=== PATIENT | female | born 1985 | race American Indian/Alaskan Native ===

== ENCOUNTER 2019-07-26 11:31 | Emergency (ER) | payer OTHER ==
--- NOTE | 2019-07-26 11:50 | EDM.PDOC ---
ED HPI GENERAL MEDICAL PROBLEM - General Chief Complaint: General Stated Complaint: CONGESTION/SORE THROAT Time Seen by Provider: 07/26/19 11:42 Source of Information: Reports: Patient, RN Notes Reviewed History Limitations: Reports: No Limitations - History of Present Illness INITIAL COMMENTS - FREE TEXT/NARRATIVE: Patient is a 34-year-old female who presents to the ED for the evaluation of ongoing influenza B symptoms. The patient notes she was diagnosed with influenza B through the [facility], a few days ago, she states that she was given generic Tamiflu for symptoms, she states she has been taking it as prescribed however it has not been helping much. She further notes that she is 27 weeks . She notes that her is going well, there seems to be no lingering issues with that. She is complaining of fever, chills, nausea, sore throat, generalized fatigue and weakness, with lightheadedness. She states that she has been taking Tylenol for other symptomatic relief, her last dose was around 11 AM as well. She states that her appetite has been down as well, she is not able to tolerate much for food or fluids by mouth. Generalized Pain Score (Numeric/FACES): 7 - Related Data Allergies Allergy/AdvReac Type Severity Reaction Status Date / Time No Known Allergies Allergy Verified 07/26/19 11:42 Home Meds: Home Meds [id number]/Iron Fumarate/FA/DSS [ 19 Tablet] 1 tab PO DAILY 07/26/19 [ History] Past Medical History DECK MATE History: Reports: LMP (Approximate): (27weeks) - Infectious Disease History Infectious Disease History: Reports: Influenza (Influenza B (Jul 2019)) Social & Family History - Caffeine Use Caffeine Use: Reports: None ED ROS GENERAL - Review of Systems Review Of Systems: See Below Constitutional: Reports: Fever, Chills, Malaise (generalized), Decreased Appetite Respiratory: Reports: Cough. Denies: Shortness of Breath Cardiovascular: Denies: Chest Pain GI/Abdominal: Reports: Nausea, Other (heartburn). Denies: Abdominal Pain, Vomiting ED EXAM, GENERAL - Physical Exam Exam: See Below Exam Limited By: No Limitations General Appearance: Alert, WD/WN, No Apparent Distress Eye Exam: Bilateral Eye: EOMI, Normal Inspection, PERRL Ears: Normal External Exam, Normal Canal, Hearing Grossly Normal, Normal TMs Nose: Normal Inspection Throat/Mouth: Normal Inspection, Normal Lips, Normal Teeth, Normal Gums, Normal Oropharynx, Normal Voice, No Airway Compromise Head: Atraumatic, Normocephalic Neck: Normal Inspection Respiratory/Chest: No Respiratory Distress, Lungs Clear, Normal Breath Sounds, No Accessory Muscle Use, Chest Non-Tender Cardiovascular: Normal Peripheral Pulses, Regular Rate, Rhythm, No Murmur Peripheral Pulses: 3+: Radial (L), Radial (R) GI/Abdominal: Normal Bowel Sounds, Soft, Non-Tender, No Distention, No Mass Neurological: Alert, Oriented, Normal Cognition, No Motor/Sensory Deficits Psychiatric: Normal Affect, Normal Mood Skin Exam: Warm, Dry, Intact, Normal Color, No Rash Course - Vital Signs Last Recorded V/S: Last Vital Signs Temp 98.1 F 07/26/19 11:39 Pulse 92 07/26/19 11:39 Resp 20 07/26/19 11:39 BP 126/77 07/26/19 11:39 Pulse Ox 99 07/26/19 11:39 - Orders/Labs/Meds Orders: Active Orders 24 hr Category Date Time Status Peripheral IV Care [RC] . DIRECTED Care 07/26/19 12:07 Ordered Lactated Ringers [Ringers, Lactated] 1,000 ml Med 07/26/19 12:07 Ordered IV .BOLUS Sodium Chloride 0.9% [Saline Flush] Med 07/26/19 12:07 Ordered 10 ml FLUSH ASDIRECTED PRN Peripheral IV Insertion Adult [OM.PC] Routine Oth 07/26/19 12:07 Ordered Medication Orders Lactated Ringer's (Ringers, Lactated) 1,000 mls @ 999 mls/hr IV .BOLUS ONE Stop: 07/26/19 13:07 Last Admin: 07/26/19 12:32 Dose: 999 mls/hr Sodium Chloride (Saline Flush) 10 ml FLUSH ASDIRECTED PRN PRN Reason: Keep Vein Open Last Admin: 07/26/19 12:32 Dose: 10 ml Meds: Medications Generic Name Dose Route Start Last Admin Trade Name Freq PRN Reason Stop Dose Admin Lactated Ringer's 1,000 mls @ 999 mls/hr 07/26/19 12:07 07/26/19 12:32 Ringers, Lactated IV 07/26/19 13:07 999 mls/hr .BOLUS ONE Administration Sodium Chloride 10 ml 07/26/19 12:07 07/26/19 12:32 Saline Flush FLUSH 10 ml ASDIRECTED PRN Administration Keep Vein Open Discontinued Medications Generic Name Dose Route Start Last Admin Trade Name Cassia PRN Reason Stop Dose Admin Al Hydroxide/Mg Hydroxide 30 0 ml 07/26/19 12:07 07/26/19 12:24 ml/ Lidocaine HCl 15 ml PO 07/26/19 12:08 45 ml ONETIME ONE Administration Ondansetron HCl 4 mg 07/26/19 12:07 07/26/19 12:26 Zofran Odt PO 07/26/19 12:08 4 mg ONETIME ONE Administration - Re-Assessments/Exams Free Text/Narrative Re-Assessment/Exam: 07/26/19 12:22 Patient presents to the ED for evaluation of ongoing influenza B symptoms. As she is 27 weeks , she will get some IV fluids as she states she has not been able to eat or drink much. She will also get some Zofran, a GI cocktail for reported heartburn. Plan is to possibly send home with some Zofran for nausea management. Departure - Departure Time of Disposition: 12:58 Disposition: Home, Self-Care 01 Condition: Fair Clinical Impression: Influenza B, Dehydration during - Discharge Information *PRESCRIPTION DRUG MONITORING PROGRAM REVIEWED*: No *COPY OF PRESCRIPTION DRUG MONITORING REPORT IN PATIENT ELIO: No Instructions: Influenza, Adult, [id number], and Influenza Referrals: Daksha Magaña MD [Primary Care Provider] - Forms: ED Department Discharge Additional Instructions: You have been evaluated in the ED for cold like symptoms and fever. You were diagnosed with influenza B from the previous clinic visit. The symptoms you are experiencing today, or ongoing influenza symptoms. In your body is immunosuppressed, due to the baby growing in situ. So sometimes symptoms hit a little harder, and last a little bit longer. You were given some IV fluids, and some medications to help with this symptom relief. Please try to limit your exposure to others until you are 24 hours fever free without medication. You may use 500 to 1000 mg Tylenol every 6 hours as needed for further fever/ pain relief. Do not exceed 4000 mg of Tylenol in a 24-hour time span. Her given a prescription for Tamiflu, please complete the course, do not stop taking it. Recommend you follow a clear liquid diet, until your symptoms seem to resolve. Fluids such as Gatorade, Powerade, chicken broth, beef breaths are ideal, please do this for the next 24 to 48 hours then advance to a bland diet as tolerated. You were given a medication called Zofran, please take 1 tab dissolvable under your tongue every 8 hours as needed for further nausea relief. Please return to the ED if his/her symptoms should change or worsen. Sepsis Event Note - Evaluation Sepsis Screening Result: Possible Sepsis Risk - Focused Exam Vital Signs: Vital Signs Temp Pulse Resp BP Pulse Ox 07/26/19 11:39 98.1 F 92 20 126/77 99 Date Exam was Performed: 07/26/19 Time Exam was Performed: 12:58 - My Orders Last 24 Hours: My Active Orders 07/26/19 12:07 Peripheral IV Care [RC] . DIRECTED Lactated Ringers [Ringers, Lactated] 1,000 ml IV .BOLUS Sodium Chloride 0.9% [Saline Flush] 10 ml FLUSH ASDIRECTED PRN Peripheral IV Insertion Adult [OM.PC] Routine - Assessment/Plan Last 24 Hours: My Active Orders 07/26/19 12:07 Peripheral IV Care [RC] . DIRECTED Lactated Ringers [Ringers, Lactated] 1,000 ml IV .BOLUS Sodium Chloride 0.9% [Saline Flush] 10 ml FLUSH ASDIRECTED PRN Peripheral IV Insertion Adult [OM.PC] Routine
[2019-07-26] MEDS ORDERED: Lactated Ringers 1,000 ML IV ONE (12:07)
[2019-07-26] MEDS ORDERED: Alum Hydrox/Mag Hydrox/Simeth 30 ML, Lidocaine 2% 15 ML PO ONE ×2 (12:07)
[2019-07-26] MEDS ORDERED: Ondansetron 4 MG Tab.DIS PO ONE (12:07)
[2019-07-26] MEDS ORDERED: Sodium Chloride 0.9% 10 ML Syringe FLUSH PRN (12:07)
[2019-07-26] MEDS ORDERED: Acetaminophen 325 MG Tab PO ONE (13:19)
== END 2019-07-26 13:50 | disposition home or self-care (01) ==
LOC: JD.ED 11:31
DX: O98.512 Other viral diseases complicating pregnancy, second trimester (principal); J10.1 Influenza due to other identified influenza virus with other respiratory manifestations; O99.282 Endocrine, nutritional and metabolic diseases complicating pregnancy, second trimester; E86.0 Dehydration; Z3A.27 27 weeks gestation of pregnancy
CPT/HCPCS: 96360; 99284; A9270; J7120; 99283